=== PATIENT | male | born 1985 | race Caucasian/White ===

== ENCOUNTER 2023-02-01 10:06 | Emergency (ER) | payer SELFPAY ==
[~2023-02-01] VITALS: Ht 175.3 cm; Wt 96.0 kg
[2023-02-01 10:14] VITALS: BP 147/86
[2023-02-01] MEDS ORDERED: ONDANSETRON HCL 4MG/2ML INJ IV STA (10:17)
[2023-02-01] MEDS ORDERED: SODIUM CHLORIDE 0.9% 1,000 ML IV ONE (10:30)
[2023-02-01] MEDS ORDERED: ONDANSETRON HCL 4MG TABLET PO ONE (11:00)
[2023-02-01] MEDS ORDERED: NALO4SPR BOTHNSTRLS (11:20)
== END 2023-02-01 15:24 | disposition home or self-care (01) ==
LOC: ER 10:06
DX: T40.411A Poisoning by fentanyl or fentanyl analogs, accidental (unintentional), initial encounter (principal); Y92.89 Other specified places as the place of occurrence of the external cause; J45.909 Unspecified asthma, uncomplicated
CPT/HCPCS: 99283; Q0162; J7030